=== PATIENT | female | born 1950 | race African-American/Black ===

== ENCOUNTER 2022-02-26 20:47 | Observation (INO) ==
[2022-02-26] MEDS ORDERED: THIAMINE INJ 100 MG, FOLIC ACID INJ 1 MG, MAGNESIUM SULF INJ 2 GM, MULTIVITAMIN INJ 10 ... IV STA (21:19)
[2022-02-26] MEDS ORDERED: THIAMINE INJ 100 MG, FOLIC ACID INJ 1 MG, MAGNESIUM SULF INJ 2 GM in SODIUM CHLORIDE 0.... IV STA (21:39)
[2022-02-26 22:04] LABS: Basophils % 0.5 % (0.0-0.8); Eosinophils # 0.1 10*3/uL (0.0-0.87); Eosinophils % 1.4 % (0.00-10.9); Hematocrit 35.9 VOL% (35.7-47.0); Immature Granulocytes % 0.2 %; Immature Granulocytes Absolute 0.01 #; Lymphocytes # 2.3 10*3/uL (1.4-4.0); Lymphocytes % 53.5 % (21.3-54.2); Mean Corpuscular HGB Conc 36.2 GM/DL (32-36); Mean Corpuscular Volume 85.3 FL (87-102); Mean Platelet Volume 11.4 FL (9.6-12.0); Monocytes # 0.4 10*3/uL (0.11-0.8); Monocytes % 10.2 % (1.7-12.7); Neutrophils % 34.2 % (38.7-73.9); Platelet Count 137 T/CUMM (130-400); Red Blood Count 4.21 MC/CUMM (3.8-5.5); Red Cell Distribution Width 13.3 % (9.3-17.3); White Blood Count 4.3 T/CUMM (4-12)
[2022-02-26 22:11] LABS: INR 0.9; PT Patient Result 10.3 SECS (10.1-12.1)
[2022-02-26 22:35] LABS: Anisocytosis 1+; Atypical Lymphocytes S; Lymphocytes 56 % (20-55); Microcytosis 1+; Platelet Estimate Adequate; Total Cells Counted 100
[2022-02-26 22:36] LABS: Reactive Lymphocytes Slight; Target Cells 2+
[2022-02-26 22:37] LABS: Alanine Aminotransferase 33 U/L (13-56); Albumin 3.4 G/DL (3.4-5.0); Alkaline Phosphatase 80 U/L (45-117); Aspartate Amino Transferase 88 U/L (0-37); Bilirubin,Total < 0.39 MG/DL (0.20-1.00); Blood Urea Nitrogen 9 MG/DL (7-18); Carbon Dioxide 27 MMOL/L (21-32); Chloride 111 MMOL/L (98-107); Glucose 122 MG/DL (74-106); Osmolality,Calculated 291.4 MOS/KG (273-304); Potassium 4.6 MMOL/L (3.5-5.1); Sodium 147 MMOL/L (136-145); Total Protein 7.6 G/DL (6.4-8.2)
[2022-02-26 23:46] LABS: Bilirubin,Urine Negative (Negative); Blood, Urine Moderate mg/dL (Negative); Glucose,Urine (UA) Negative (Negative); Ketones,Urine Negative (Negative); Nitrite,Urine Negative (Negative); Protein,Urine Negative (Negative); Urine Appearance CLEAR (Clear); Urine Color Straw (Yellow); Urine Specific Gravity 1.002 (1.001-1.035); Urine Urobilinogen < 2.0 eU/dL (<2.0)
[2022-02-27] MEDS ORDERED: THIAMINE INJ 100 MG, FOLIC ACID INJ 1 MG, MULTIVITAMIN INJ 10 ML in DEXTROSE 5% NACL 0.... IV SCH (00:30)
[2022-02-27] MEDS ORDERED: guaiFENesin/DM ER 600-30 MG TABLET PO PRN (00:55)
[2022-02-27] MEDS ORDERED: ONDANSETRON 4 MG/2 ML VIAL IV PRN (00:55)
[2022-02-27] MEDS ORDERED: hydrALAZINE 20 MG/1 ML VIAL IV PRN (00:55)
[2022-02-27] MEDS ORDERED: ACETAMINOPHEN 325 MG TABLET PO PRN (00:55)
[2022-02-27] MEDS ORDERED: ZALEPLON 5 MG CAPSULE PO PRN (00:55)
[2022-02-27] MEDS ORDERED: NICOTINE 21 MG/24 HR PATCH TRANSDERM PRN (00:55)
[2022-02-27] MEDS: MULTIVITAMIN (CENTRUM) TABLET PO SCH ×2 (02:27→10:48)
[2022-02-27 05:32] LABS: Basophils % 0.3 % (0.0-0.8); Eosinophils # 0.1 10*3/uL (0.0-0.87); Eosinophils % 2.4 % (0.00-10.9); Hematocrit 32.3 VOL% (35.7-47.0); Hemoglobin 11.5 GM/DL (12.0-16.0); Immature Granulocytes % 0.3 %; Immature Granulocytes Absolute 0.01 #; Lymphocytes # 1.1 10*3/uL (1.4-4.0); Lymphocytes % 37.4 % (21.3-54.2); Mean Corpuscular HGB Conc 35.6 GM/DL (32-36); Mean Corpuscular Volume 85.2 FL (87-102); Mean Platelet Volume 10.9 FL (9.6-12.0); Monocytes # 0.4 10*3/uL (0.11-0.8); Monocytes % 12.6 % (1.7-12.7); Platelet Count 122 T/CUMM (130-400); Red Blood Count 3.79 MC/CUMM (3.8-5.5); Red Cell Distribution Width 13.2 % (9.3-17.3); White Blood Count 2.9 T/CUMM (4-12)
[2022-02-27 05:47] LABS: Calcium 8.3 MG/DL (8.5-10.1); Osmolality,Calculated 294.9 MOS/KG (273-304); Potassium 3.4 MMOL/L (3.5-5.1)
[2022-02-27 07:06] LABS: Barbiturates Screen,Urine Negative (Negative); Benzodiazepines Screen,Urine Negative (Negative); Cannabinoid Screen,Urine Negative (Negative); Opiate Screen,Urine Negative (Negative); Phencyclidine Screen,Urine Negative (Negative)
[2022-02-27] MEDS ORDERED: LACTATED RINGERS 250 ML IV ONE (08:56)
[2022-02-27] MEDS ORDERED: FOLIC ACID 1 MG TABLET PO SCH (09:00)
[2022-02-27] MEDS ORDERED: THIAMINE 200 MG/2 ML VIAL IV SCH (09:00)
[2022-02-27] MEDS ORDERED: PANTOPRAZOLE 40 MG TABLET PO SCH (09:00)
[2022-02-27] MEDS ORDERED: HEPARIN 5,000 UNIT/1 ML VIAL SUBCUT SCH (09:00)
[2022-02-27] MEDS ORDERED: LACTATED RINGERS 1,000 ML IV ONE (11:19)
[2022-02-27 12:50] VITALS: BP 159/84
[2022-02-27 12:58] LABS: Calcium 8.1 MG/DL (8.5-10.1); Osmolality,Calculated 287.4 MOS/KG (273-304); Potassium 3.5 MMOL/L (3.5-5.1)
== END 2022-02-27 16:00 | disposition home or self-care (01) ==
LOC: EDUNIT# → EDBD → N.EDINP 20:47 → N.ED 20:47 → SUATTDRO 02-27 00:55 → N.5E 02-27 02:27
PROVIDERS: ADMIT Internal Medicine; ATTEND Internal Medicine